=== PATIENT | male | born 1960 ===

== ENCOUNTER 2017-06-08 08:11 | Emergency (ER) | payer OTHER ==
[2017-06-08 08:11] VITALS: BMI 33.4
[2017-06-08 08:18] VITALS: O2SAT 98
[2017-06-08] MEDS ORDERED: Lidocaine/Epi 1% 1:100000 20 ML IJ ONE (08:58)
[2017-06-08] MEDS ORDERED: Lidocaine 2% w Epi 1:100,000 Inj IJ ONE (09:00)
[2017-06-08] MEDS ORDERED: Lidocaine 1% w Epi 1:100,000 Inj ONE (09:05)
--- NOTE | 2017-06-08 09:23 | ED PDOC ---
HPI: Eye Injury/Pain Time Seen by Provider: 06/08/17 08:53 Chief Complaint (Nursing): Eye Problem Chief Complaint (Provider): Eye Problem History Per: Patient History/Exam Limitations: no limitations Onset/Duration Of Symptoms: Other (prior to arrival) Current Symptoms Are (Timing): Still Present Additional Complaint(s): 57 year old male with a past medical history of HTN, who presents to the ED due to a left periorbital laceration prior to arrival. Patient states he tripped and fell on stairs this morning. Reports sustaining a laceration to left periorbital area, but denies LOC or any other injuries. Denies blurry vision, weakness, paresthesias, or headaches. PMD: Non-[facility] Provider Past Medical History Reviewed: Historical Data, Nursing Documentation, Vital Signs Vital Signs: Last Vital Signs Temp 98.2 F 06/08/17 08:17 Pulse 61 06/08/17 08:17 Resp 20 06/08/17 08:17 BP 158/89 H 06/08/17 08:17 Pulse Ox 98 06/08/17 08:17 - Medical History PMH: HTN - Surgical History Surgical History: No Surg Hx - Family History Family History: States: Unknown Family Hx - Home Medications Home Medications: Ambulatory Orders Medication Instructions Recorded Azithromycin [Zithromax] 250 mg PO DAILY #4 tab 02/02/16 Ramipril [Altace] 10 mg PO DAILY 02/02/16 - Allergies Allergies/Adverse Reactions: Allergies Allergy/AdvReac Type Severity Reaction Status Date / Time No Known Allergies Allergy Verified 02/02/16 11:15 Review of Systems ROS Statement: Except As Marked, All Systems Reviewed And Found Negative Eyes: Negative for: Vision Change Skin: Positive for: Lesions (laceration to left periorbital region) Neurological: Negative for: Weakness, Headache, Other (paresthesias) Physical Exam - Reviewed Nursing Documentation Reviewed: Yes Vital Signs Reviewed: Yes - Physical Exam Appears: Positive for: Non-toxic, No Acute Distress Head Exam: Positive for: NORMOCEPHALIC. Negative for: ATRAUMATIC (1.5 cm laceration to left perioribal area, no palpable fracture) Skin: Positive for: Normal Color, Warm, Dry. Negative for: Rash Eye Exam: Positive for: EOMI, Normal appearance, PERRL Neck: Positive for: Normal, Painless ROM, Supple Cardiovascular/Chest: Positive for: Regular Rate, Rhythm. Negative for: Murmur Respiratory: Positive for: Normal Breath Sounds. Negative for: Respiratory Distress Gastrointestinal/Abdominal: Positive for: Normal Exam, Bowel Sounds, Soft. Negative for: Tenderness Back: Positive for: Normal Inspection. Negative for: L CVA Tenderness, R CVA Tenderness, Vertebral Tenderness Extremity: Positive for: Normal ROM. Negative for: Pedal Edema, Deformity, Swelling Neurologic/Psych: Positive for: Alert, Oriented (x3). Negative for: Motor/ Sensory Deficits - ECG O2 Sat by Pulse Oximetry: 98 (RA) Pulse Ox Interpretation: Normal Medical Decision Making Medical Decision Making: Time: 08:58 Initial Plan: --Lidocaine w/ Epi --Laceration repair --Reevaluation --Patient declined CT Orbits and Head Scribe Attestation: Documented by Elias Thompson, acting as a scribe for James Musa MD. Provider Scribe Attestation: All medical record entries made by the Scribe were at my direction and personally dictated by me. I have reviewed the chart and agree that the record accurately reflects my personal performance of the history, physical exam, medical decision making, and the department course for this patient. I have also personally directed, reviewed, and agree with the discharge instructions and disposition. Procedures - Laceration/Wound Repair Left Periorbital Region Wound Length (cm): 1.5 Anesthesia: Lidocaine w/ Epi Wound Repaired With: Sutures Suture Size/Type: 5:0, nylon Number of Sutures: 4 Wound Complexity: Simple Progress: The patient tolerated the procedure well and there were no complications. Disposition - Clinical Impression Clinical Impression: Laceration - Patient ED Disposition Is Patient to be Admitted: No Counseled Patient/Family Regarding: Diagnosis, Need For Followup - Disposition Referrals: [facility] [Outside] Disposition: Routine/Home Disposition Time: 09:40 Condition: FAIR Additional Instructions: Suture removal 5 days Instructions: Laceration Repair, Laceration Repair With [place] ([place]) Forms: [employer] (Norwegian) Print Language: DANISH
[2017-06-08 09:51] VITALS: BP 120/78; PULSE 78; RESP 18; TEMP 97
== END 2017-06-08 09:51 | disposition home or self-care (01) ==
LOC: H.ER 08:11
DX: S01.112A Laceration without foreign body of left eyelid and periocular area, initial encounter (principal); W10.9XXA Fall (on) (from) unspecified stairs and steps, initial encounter; I10 Essential (primary) hypertension

== ENCOUNTER 2017-06-13 11:05 | Emergency (ER) | payer OTHER ==
[2017-06-13 11:05] VITALS: BMI 33.4
[2017-06-13 11:32] VITALS: BP 152/83; PULSE 54; RESP 18; TEMP 98.1; O2SAT 99
--- NOTE | 2017-06-13 12:07 | ED PDOC ---
HPI: Wound Care - HPI Time Seen by Provider: 06/13/17 11:22 Chief Complaint (Nursing): Suture/Staple Removal History Per: Patient Additional Complaint(s): Pt. had sutures placed on the L side of face on 06/08/2017 and is now here for suture removal. Denies pain, discharge, fever, swelling. Past Medical History Reviewed: Historical Data, Nursing Documentation, Vital Signs Vital Signs: Last Vital Signs Temp 98.1 F 06/13/17 11:28 Pulse 54 L 06/13/17 11:28 Resp 18 06/13/17 11:28 BP 152/83 H 06/13/17 11:28 Pulse Ox 99 06/13/17 11:28 - Medical History PMH: HTN - Surgical History Surgical History: No Surg Hx - Family History Family History: States: No Known Family Hx - Home Medications Home Medications: Ambulatory Orders Medication Instructions Recorded Azithromycin [Zithromax] 250 mg PO DAILY #4 tab 02/02/16 Ramipril [Altace] 10 mg PO DAILY 02/02/16 - Allergies Allergies/Adverse Reactions: Allergies Allergy/AdvReac Type Severity Reaction Status Date / Time No Known Allergies Allergy Verified 02/02/16 11:15 Review of Systems ROS Statement: Except As Marked, All Systems Reviewed And Found Negative Physical Exam - Physical Exam Appears: Positive for: Well, Non-toxic, No Acute Distress Head Exam: Positive for: ATRAUMATIC (L temporal area with [address] without swelling, erythema, or discharge), NORMAL INSPECTION, NORMOCEPHALIC Skin: Positive for: Normal Color, Warm. Negative for: Rash Eye Exam: Positive for: Normal appearance. Negative for: Periorbital swelling, Periorbital tenderness Neurologic/Psych: Positive for: Alert, Oriented - ECG O2 Sat by Pulse Oximetry: 99 - Progress ED Course And Treament: All 4 sutures removed without difficulty by PA. Disposition - Clinical Impression Clinical Impression: Encounter for removal of sutures - Patient ED Disposition Is Patient to be Admitted: No - Disposition Disposition: Routine/Home Disposition Time: 12:07 Condition: STABLE Instructions: Stitches Removal Print Language: KHMER
== END 2017-06-13 12:18 | disposition home or self-care (01) ==
LOC: H.ER 11:05
DX: Z48.02 Encounter for removal of sutures (principal); I10 Essential (primary) hypertension

== ENCOUNTER 2017-09-23 14:54 | Emergency (ER) | payer OTHER ==
[2017-09-23 14:54] VITALS: BMI 33.4
[2017-09-23 15:23] VITALS: O2SAT 99
[2017-09-23] MEDS ORDERED: Sodium Chloride 0.9% 1,000 ML IV STA (15:41)
--- NOTE | 2017-09-23 16:01 | ED PDOC ---
HPI: Back Time Seen by Provider: 09/23/17 15:33 Chief Complaint (Nursing): Back Pain Chief Complaint (Provider): back pain History Per: Patient History/Exam Limitations: no limitations Onset/Duration Of Symptoms: Hrs Current Symptoms Are (Timing): Still Present Quality Of Discomfort: "Pain" Additional History Per: Patient Additional Complaint(s): 57yo male, comes to ER with complaints of sudden onset right flank pain radiating to his right lower quadrant since 2 pm. Patient states the pain is constant with associated nausea. He denies any such symptoms before and denies any history of kidney stones. Otherwise: (-) trauma/injury, (-) similar symptoms in the past, (-) heavy lifting, (-) urinary symptoms, (-) vomiting, (- ) diarrhea, (-) fever, (-) melena, (-) hematochezia, (-) paresthesias, (-) weakness, (-) acute bowel or bladder dysfunction. Past Medical History Reviewed: Historical Data, Nursing Documentation, Vital Signs Vital Signs: Last Vital Signs Temp 97.4 F L 09/23/17 15:18 Pulse 56 L 09/23/17 15:18 Resp 20 09/23/17 15:18 BP 124/67 09/23/17 15:18 Pulse Ox 99 09/23/17 15:18 - Medical History PMH: HTN - Surgical History Surgical History: No Surg Hx - Family History Family History: States: No Known Family Hx - Home Medications Home Medications: Ambulatory Orders Medication Instructions Recorded Azithromycin [Zithromax] 250 mg PO DAILY #4 tab 02/02/16 Ramipril [Altace] 10 mg PO DAILY 02/02/16 Naproxen 500 mg PO BID #30 tab 09/23/17 Ondansetron ODT [Zofran ODT] 4 mg PO DAILY PRN #20 odt 09/23/17 Tamsulosin [Flomax] 0.4 mg PO DAILY #10 cap 09/23/17 oxyCODONE/Acetaminophen [Percocet 1 ea PO TID PRN #12 tab 09/23/17 5/325 mg Tab] - Allergies Allergies/Adverse Reactions: Allergies Allergy/AdvReac Type Severity Reaction Status Date / Time No Known Allergies Allergy Verified 09/23/17 15:23 Review of Systems Constitutional: Negative for: Fever, Chills Cardiovascular: Negative for: Chest Pain Gastrointestinal: Positive for: Nausea, Vomiting. Negative for: Diarrhea, Constipation Genitourinary Male: Negative for: Dysuria, Frequency, Incontinence, Hematuria Musculoskeletal: Positive for: Back Pain Neurological: Negative for: Weakness Physical Exam - Reviewed Nursing Documentation Reviewed: Yes Vital Signs Reviewed: Yes - Physical Exam Comments: GENERAL APPEARANCE: Patient is awake, alert, oriented x 3, in moderate painful distress. Vomiting in the ER. SKIN: Warm, dry; (-) cyanosis. EYES: (-) conjunctival pallor, (-) scleral icterus. ENMT: Mucous membranes moist. NECK: (-) tenderness, (-) stiffness, (-) lymphadenopathy. CHEST AND RESPIRATORY: (-) rales, (-) rhonchi, (-) wheezes; breath sounds equal bilaterally. HEART AND CARDIOVASCULAR: (-) irregularity; (-) murmur, (-) gallop. ABDOMEN AND GI: (-) distention. Bowel sounds active; (+) tenderness in right flank, (-) guarding, (-) rebound, (-) palpable masses, (-) CVA tenderness. EXTREMITIES: (-) deformity, (-) edema, (+) distal pulses. NEURO AND PSYCH: Mental status as above; (-) focal findings. - Laboratory Results Result Diagrams: 09/23/17 16:30 09/23/17 16:30 - ECG O2 Sat by Pulse Oximetry: 99 (RA) Pulse Ox Interpretation: Normal Medical Decision Making Medical Decision Making: Impression: r/o renal colic Plan: -- Labs -- CT abdomen/pelvis w/o contrast -- IV Fluids -- Toradol 30mg IV -- Zofran 4mg IVP -- Urinalysis 1631 VT Abdomen/ Pelvis FINDINGS: LOWER THORAX: The visualized lungs are clear. LIVER: Normal in size. No gross lesion or ductal dilatation. GALLBLADDER AND BILE DUCTS: No calcified gallstones. PANCREAS: Normal in size. No gross lesion or ductal dilatation. SPLEEN: Normal in size. ADRENALS: No discrete nodule KIDNEYS AND URETERS: There is 2 mm stone in the right distal ureteral in the mid pelvis proximal to the UV junction with resultant mild edema and enlargement of the right kidney, mild hydronephrosis and mild perinephric fat stranding. The left kidney is normal in size without nephrolithiasis or hydronephrosis. The left ureter is not dilated. VASCULATURE: No aortic aneurysm. BOWEL: Unremarkable. No obstruction. No gross mural thickening. APPENDIX: Normal appendix. PERITONEUM: No free fluid. No free air. LYMPH NODES: No enlarged lymph nodes. BLADDER: Grossly normal in appearance. REPRODUCTIVE: The uterus is normal in size. BONES: No acute fracture. There are bilateral pars interarticularis defects at L5 with grade 1 anterior listhesis of L5 on S1. OTHER FINDINGS: There is a moderate size sliding hiatal hernia. IMPRESSION: 1. Mild right obstructive uropathy resulting from a 2 mm stone in the right distal ureteral in the mid-pelvis proximal to the UV junction. 2. Moderate sliding hiatal hernia. 3. Bilateral pars interarticularis defects at L5 with grade 1 anterior listhesis of L5 on S1. 2024 Labs review UA shows positive blood. On reevaluation, patient reports improvement of symptoms, laying comfortably, in no distress, no CVA tenderness. Labs, CT results and diagnosis of renal colic are discussed with patient. Patient is recommended outpatient follow up with a urologist. Patient states he fully agrees with and understands discharge instructions. States that he agrees with the plan and disposition. Verbalized and repeated discharge instructions and plan. I have given the patient opportunity to ask any additional questions. Scribe Attestation: Documented by Keena Villela acting as a scribe for FOUZIA Perez. Provider Scribe Attestation: All medical record entries made by the Scribe were at my direction and personally dictated by me. I have reviewed the chart and agree that the record accurately reflects my personal performance of the history, physical exam, medical decision making, and the department course for this patient. I have also personally directed, reviewed, and agree with the discharge instructions and disposition. Disposition - Clinical Impression Clinical Impression: Renal colic - Patient ED Disposition Is Patient to be Admitted: No Counseled Patient/Family Regarding: Studies Performed, Diagnosis, Need For Followup, Rx Given - Disposition Referrals: Michael Acosta MD [Medical Doctor] - Disposition: Routine/Home Disposition Time: 20:25 Condition: STABLE Additional Instructions: Drink plenty of water. Take medication as prescribed. Follow up with urology referral given in 2-3 days for re-evaluation. Return to the ER at any time for any new or worsening symptoms. Beber abundante agua. [place] la medicacin segn lo prescrito. Seguimiento con referencia de urologa en 2-3 somers para izaiah nueva evaluacin. Regrese a la rajat de emergencias en cualquier momento por cualquier sntoma nuevo o que empeore. Prescriptions: Naproxen 500 mg PO BID #30 tab Ondansetron ODT [Zofran ODT] 4 mg PO DAILY PRN #20 odt PRN Reason: Nausea/Vomiting oxyCODONE/Acetaminophen [Percocet 5/325 mg Tab] 1 ea PO TID PRN #12 tab PRN Reason: Pain, Moderate (4-7) Tamsulosin [Flomax] 0.4 mg PO DAILY #10 cap Instructions: Renal Colic Forms: [employer] (Icelandic), [facility] ED School/Work Excuse Print Language: DIVEHI
--- NOTE | 2017-09-23 16:32 | CT ---
PROCEDURE: CT Abdomen and Pelvis without intravenous contrast HISTORY: Right flank pain COMPARISON: None. TECHNIQUE: CT scan of the abdomen and pelvis was performed without administration of intravenous contrast. Oral contrast was not administered. Coronal and sagittal reformatted images were obtained. Radiation dose: Total exam DLP = 981.63 mGy-cm. This CT exam was performed using one or more of the following dose reduction techniques: Automated exposure control, adjustment of the mA and/or kV according to patient size, and/or use of iterative reconstruction technique. FINDINGS: LOWER THORAX: The visualized lungs are clear. LIVER: Normal in size. No gross lesion or ductal dilatation. GALLBLADDER AND BILE DUCTS: No calcified gallstones. PANCREAS: Normal in size. No gross lesion or ductal dilatation. SPLEEN: Normal in size. ADRENALS: No discrete nodule KIDNEYS AND URETERS: There is 2 mm stone in the right distal ureteral in the mid pelvis proximal to the UV junction with resultant mild edema and enlargement of the right kidney, mild hydronephrosis and mild perinephric fat stranding. The left kidney is normal in size without nephrolithiasis or hydronephrosis. The left ureter is not dilated. VASCULATURE: No aortic aneurysm. BOWEL: Unremarkable. No obstruction. No gross mural thickening. APPENDIX: Normal appendix. PERITONEUM: No free fluid. No free air. LYMPH NODES: No enlarged lymph nodes. BLADDER: Grossly normal in appearance. REPRODUCTIVE: The uterus is normal in size. BONES: No acute fracture. There are bilateral pars interarticularis defects at L5 with grade 1 anterior listhesis of L5 on S1. OTHER FINDINGS: There is a moderate size sliding hiatal hernia. IMPRESSION: 1. Mild right obstructive uropathy resulting from a 2 mm stone in the right distal ureteral in the mid-pelvis proximal to the UV junction. 2. Moderate sliding hiatal hernia. 3. Bilateral pars interarticularis defects at L5 with grade 1 anterior listhesis of L5 on S1.
[2017-09-23 16:44] LABS: BASO # 0.1 K/uL (0.0-0.2); BASO % 0.5 % (0.0-2.0); EOS # 0.1 K/uL (0.0-0.7); HEMOGLOBIN 13.8 g/dL (12.0-18.0); LYMPH % 16.2 % (20.0-40.0); MEAN CORPUSCULAR HEMOGLOBIN 26.3 pg (27.0-31.0); MEAN CORPUSCULAR HGB CONC 32.4 g/dL (33.0-37.0); MEAN PLATELET VOLUME 9.5 fl (7.2-11.7); MONO # 0.9 K/uL (0.0-0.8); MONO % 6.8 % (0.0-10.0); NEUT # 9.5 K/uL (1.8-7.0); NEUT % 75.5 % (50.0-75.0); NRBC % 0.2 % (0.0-0.0); RBC 5.24 Mil/uL (4.40-5.90); RED CELL DISTRIBUTION WIDTH 14.4 % (11.5-14.5); WHITE BLOOD COUNT 12.5 K/uL (4.8-10.8)
[2017-09-23 16:53] LABS: ALB/GLOB RATIO 1.2 (1.0-2.1); ALBUMIN 4.6 g/dL (3.5-5.0); ALT/SGPT 57 U/L (21-72); AST/SGOT 69 U/L (17-59); BLOOD UREA NITROGEN 19 mg/dl (9-20); CALCIUM 9.6 mg/dL (8.4-10.2); GFR AFRICAN-AMERICAN > 60; GFR NON-AFRICAN AMERICAN 57; LIPASE 88 U/L (23-300)
[2017-09-23 20:02] LABS: URINE BILIRUBIN NEGATIVE (NEGATIVE); URINE BLOOD TRACE-LYSED (NEGATIVE); URINE CLARITY CLEAR (Clear); URINE COLOR YELLOW (YELLOW); URINE GLUCOSE (UA) NEG (Normal); URINE LEUKOCYTE ESTERASE NEG Leu/uL (Negative); URINE PROTEIN 30 mg/dL (NEGATIVE)
[2017-09-23 20:32] VITALS: RESP 16
[2017-09-24 01:54] VITALS: BP 132/78; PULSE 89; TEMP 98.2
== END 2017-09-23 21:20 | disposition home or self-care (01) ==
LOC: H.ER 14:54
DX: N13.2 Hydronephrosis with renal and ureteral calculous obstruction (principal); I10 Essential (primary) hypertension; K44.9 Diaphragmatic hernia without obstruction or gangrene
CPT/HCPCS: 74176; 80053; 81003; 83690; 85025; 87086; 96374; 96375; 99284; J1885; J2405; J7030

== ENCOUNTER 2018-01-27 01:44 | Emergency (ER) | payer OTHER, SELFPAY ==
[2018-01-27 01:45] VITALS: BMI 33.4
[2018-01-27 01:53] VITALS: RESP 18
[2018-01-27 03:21] LABS: BASO # 0.1 K/uL (0.0-0.2); BASO % 0.7 % (0.0-2.0); EOS # 0.2 K/uL (0.0-0.7); EOS % 2.4 % (0.0-4.0); HEMOGLOBIN 12.6 g/dL (12.0-18.0); LYMPH # 1.9 K/uL (1.0-4.3); LYMPH % 20.5 % (20.0-40.0); MEAN CELL VOLUME 80.9 fl (80.0-94.0); MEAN CORPUSCULAR HEMOGLOBIN 26.5 pg (27.0-31.0); MEAN CORPUSCULAR HGB CONC 32.8 g/dL (33.0-37.0); MEAN PLATELET VOLUME 9.8 fl (7.2-11.7); MONO % 10.4 % (0.0-10.0); NEUT # 6.2 K/uL (1.8-7.0); RBC 4.77 Mil/uL (4.40-5.90); WHITE BLOOD COUNT 9.5 K/uL (4.8-10.8)
[2018-01-27 03:22] LABS: ALB/GLOB RATIO 1.2 (1.0-2.1); ALT/SGPT 46 U/L (21-72); AST/SGOT 40 U/L (17-59); BLOOD UREA NITROGEN 19 mg/dl (9-20); CALCIUM 9.1 mg/dL (8.4-10.2); GFR NON-AFRICAN AMERICAN > 60
--- NOTE | 2018-01-27 03:25 | ED PDOC ---
HPI: Male Pain Time Seen by Provider: 01/27/18 02:00 Chief Complaint (Nursing): Male Genitourinary Chief Complaint (Provider): Right Flank Pain History Per: Patient History/Exam Limitations: no limitations Onset/Duration Of Symptoms: Days (1x) Associated Symptoms: denies: Vomiting, Urinary Symptoms (hematuria) Additional Complaint(s): Zen Webster is a 57 year old male with a past medical history of kidney stones this past September presents to the ER complaining of right flank pain. Patient took Tramadol 1 hour prior to arrival for pain. He reports the pain is different than pain from kidney stones. The patient has no hematuria or vomiting. no fever or dysuria. PCP: none provided Past Medical History Vital Signs: Last Vital Signs Temp 98.7 F 01/27/18 01:51 Pulse 50 L 01/27/18 01:51 Resp 18 01/27/18 01:51 BP 109/57 L 01/27/18 01:51 Pulse Ox 97 01/27/18 01:51 - Medical History PMH: HTN, Kidney Stones (past September) Denies: Chronic Kidney Disease - Surgical History Surgical History: Back Surgery Other surgeries: bariatric surgery - Family History Family History: States: Unknown Family Hx - Social History Current smoker - smoking cessation education provided: No Alcohol: None Drugs: Denies - Home Medications Home Medications: Ambulatory Orders Medication Instructions Recorded RX: Azithromycin [Zithromax] 250 mg PO DAILY #4 tab 02/02/16 RX: Ramipril [Altace] 10 mg PO DAILY 02/02/16 Ondansetron ODT [Zofran ODT] 4 mg PO DAILY PRN #20 odt 09/23/17 RX: Naproxen 500 mg PO BID #30 tab 09/23/17 Tamsulosin [Flomax] 0.4 mg PO DAILY #10 cap 09/23/17 oxyCODONE/Acetaminophen [Percocet 1 ea PO TID PRN #12 tab 09/23/17 5/325 mg Tab] Ibuprofen [Motrin] 600 mg PO Q6H PRN #20 tab 01/27/18 - Allergies Allergies/Adverse Reactions: Allergies Allergy/AdvReac Type Severity Reaction Status Date / Time No Known Allergies Allergy Verified 09/23/17 15:23 Review of Systems ROS Statement: Except As Marked, All Systems Reviewed And Found Negative Gastrointestinal: Negative for: Vomiting Genitourinary Male: Negative for: Hematuria Musculoskeletal: Positive for: Back Pain (right flank pain) Physical Exam - Physical Exam Appears: Positive for: Well, Non-toxic, No Acute Distress Head Exam: Positive for: ATRAUMATIC, NORMAL INSPECTION, NORMOCEPHALIC Skin: Positive for: Normal Color, Warm, DRY Eye Exam: Positive for: EOMI, Normal appearance, PERRL ENT: Positive for: Normal ENT Inspection Neck: Positive for: Normal, Painless ROM (x 4) Cardiovascular/Chest: Positive for: Regular Rate, Rhythm Respiratory: Positive for: CNT, Normal Breath Sounds Gastrointestinal/Abdominal: Positive for: Soft. Negative for: Tenderness Back: Positive for: Other (right flank tenderness (mild)) Extremity: Positive for: Normal ROM (x 4) Neurologic/Psych: Positive for: Alert, Oriented (x3) - Laboratory Results Result Diagrams: 01/27/18 02:30 01/27/18 02:30 - ECG O2 Sat by Pulse Oximetry: 97 (RA) Medical Decision Making Medical Decision Making: Time: 02:25 Initial Impression: Initial Plan: r flank pain rule out UTI, rule out stone --CBC --CMP --Urine culture --Urinalysis --CT A/P w/o PO or IV contrast CT A/P w/o PO or IV contrast 03:38 CT Abdomen and Pelvis Without IV Contrast, Renal Stone Protocol CLINICAL HISTORY: Abd. pain, Hx of right kidney stones TECHNIQUE: Axial computed tomography images of the abdomen and pelvis without intravenous contrast according to a renal stone protocol. 908.49 mGy-cm CONTRAST: No IV contrast. COMPARISON: None provided. FINDINGS: LUNG BASES: The cardiac silhouette is enlarged. There is evidence for pulmonary venous congestion compatible with CHF. LIVER: The liver appears within normal limits. GALLBLADDER AND BILE DUCTS: The gallbladder appears unremarkable. No radioopaque gallstones are seen. No biliary ductal dilatation is evident. PANCREAS: Unremarkable. SPLEEN: The spleen is normal in size without focal lesion. ADRENAL GLANDS: Unremarkable. KIDNEYS, URETERS, AND BLADDER: No hydronephrosis, hydroureter, or urinary calculi seen. The urinary bladder appears within normal limits. STOMACH AND BOWEL: No wall thickening. No CT evidence of colitis or acute diverticulitis. No evidence of bowel obstruction. APPENDIX: No evidence of acute appendicitis on CT examination. PERITONEUM: No free fluid. No free air. LYMPH NODES: No lymphadenopathy is evident. REPRODUCTIVE: Unremarkable as visualized. VASCULATURE: No abdominal aortic aneurysm. BONES: No aggressive appearing osseous lesions. No acute fracture is evident. MISCELLANEOUS: Small fat-containing umbilical hernia is noted. IMPRESSION: 1. Small fat-containing umbilical hernia is noted. 2. The cardiac silhouette is enlarged. 3. There is evidence for pulmonary venous congestion compatible with CHF. 4. No acute abdominal or pelvic pathology. 05:06 Urine results negative pt and aware of results feels better after toradol pt stable for dc aware of CHF findings and need to follow up as outpt = they have no MD, will refer to clinic Scribe Attestation: Documented by, Alexandru Bhagat acting as a scribe for Jimmy Lion MD. Provider Scribe Attestation: All medical record entries made by the Scribe were at my direction and personally dictated by me. I have reviewed the chart and agree that the record accurately reflects my personal performance of the history, physical exam, medical decision making, and the department course for this patient. I have also personally directed, reviewed, and agree with the discharge instructions and disposition. Disposition - Clinical Impression Clinical Impression: Musculoskeletal back pain - Patient ED Disposition Is Patient to be Admitted: No Counseled Patient/Family Regarding: Studies Performed, Diagnosis, Need For Followup - Disposition Referrals: [facility] [Outside] [facility] [Outside] Disposition: Routine/Home Disposition Time: 05:00 Condition: IMPROVED Additional Instructions: follow up with your primary doctor in 1-2 days you have signs of heart failure on your CT return to the ED with any worsening or concerning symptoms Prescriptions: Ibuprofen [Motrin] 600 mg PO Q6H PRN #20 tab PRN Reason: Pain, Moderate (4-7) Instructions: Upper Back Pain ([place]) Forms: [employer] [facility] (Hebrew), [facility] ED School/Work Excuse Print Language: [place] ISLANDER
[2018-01-27 04:26] LABS: URINE BILIRUBIN NEGATIVE (NEGATIVE); URINE BLOOD NEGATIVE (NEGATIVE); URINE CLARITY SLIGHTY-CLOUDY (Clear); URINE COLOR YELLOW (YELLOW); URINE GLUCOSE (UA) NEG (Normal); URINE HYALINE CAST 0-2 /hpf (0-2); URINE LEUKOCYTE ESTERASE NEG Leu/uL (Negative); URINE PROTEIN 100 mg/dL (NEGATIVE); URINE UROBILINOGEN 0.2-1.0 mg/dL (0.2-1.0)
[2018-01-27 05:07] VITALS: BP 128/66; PULSE 66; TEMP 98.3
[2018-01-27 05:55] VITALS: O2SAT 97
--- NOTE | 2018-01-27 12:55 | CT ---
Date of service: 01/27/2018 PROCEDURE: CT Abdomen and Pelvis without intravenous contrast HISTORY: abd pain COMPARISON: 09/23/2017 TECHNIQUE: Without contrast.. Contrast dose: 0 Radiation dose: Total exam DLP = 908.49 mGy-cm. This CT exam was performed using one or more of the following dose reduction techniques: Automated exposure control, adjustment of the mA and/or kV according to patient size, and/or use of iterative reconstruction technique. FINDINGS: LOWER THORAX: Cardiomegaly. No infiltrate/effusion. LIVER: Unremarkable. No gross lesion or ductal dilatation. GALLBLADDER AND BILE DUCTS: Unremarkable. PANCREAS: Unremarkable. No gross lesion or ductal dilatation. SPLEEN: Unremarkable. ADRENALS: Unremarkable. No mass. KIDNEYS AND URETERS: No mass, calculus or hydronephrosis. VASCULATURE: No aneurysm. Minimal atherosclerotic calcification of the right common iliac artery. BOWEL: Unremarkable. No obstruction. No gross mural thickening. APPENDIX: Unremarkable. Normal appendix. PERITONEUM: Small umbilical hernia containing only mesenteric fat and no bowel. LYMPH NODES: Unremarkable. No enlarged lymph nodes. BLADDER: Nondistended REPRODUCTIVE: Normal prostate BONES: Bilateral L5 spondylolysis with grade 1 L5-S1 spondylolisthesis. No acute fracture. OTHER FINDINGS: None. IMPRESSION: No acute abnormality. Mild cardiomegaly. Incidental umbilical hernia containing only mesenteric fat. No evidence of urinary calculus or urinary tract obstruction. The preliminary findings for this examination were reported by [facility] at 3:38 a.m. on 01/27/2018.. There is concurrence of this report with the preliminary findings.
== END 2018-01-27 05:15 | disposition home or self-care (01) ==
LOC: H.ER 01:44
DX: M54.9 Dorsalgia, unspecified (principal); Z87.442 Personal history of urinary calculi; I11.0 Hypertensive heart disease with heart failure
CPT/HCPCS: 74176; 80053; 81003; 85025; 87086; 99284; J1885